=== PATIENT | female | born 2005 | race Caucasian/White ===

== ENCOUNTER 2024-11-03 01:41 | Emergency (ER) | payer SELFPAY ==
[2024-11-03 01:47] VITALS: BP 105/85
--- NOTE | 2024-11-03 03:20 | ED.GENMED ---
History of Present Illness
General
Chief Complaint: Musculo-Skeletal Complaint
Source: patient and family
Exam Limitations: none
Time Seen by Provider: 11/03/24 02:19
Nursing documentation reviewed up to this point in time: agreed with
History of Present Illness
History of Present Illness:
18-year-old female presenting to the emergency department today with concerns of right ankle swelling after standing up quickly twisting her ankle. Beauty a pop difficulty ambulating since worsening swelling since as well. Denies additional injury
no numbness or weakness
Review of Systems
Review of Systems
Allergies reviewed?: Yes
All Other Systems: ROS reviewed and negative except as documented in HPI and ROS
Phy Exam
Physical Exam
Physical Exam:
GENERAL: Alert , in no apparent distress
EYE: pupils equal and reactive
NECK: Supple, no significant adenopathy.
ENT: o/p clr, mmm.
CARDIAC: Regular rate and rhythm .
LUNGS: Clear breath sounds bilaterally, no acute respiratory distress, no wheezes/rales/rhonchi
ABDOMEN: Soft, without focal tenderness, no r/g, no cvat
NEUROLOGICAL: Alert and oriented, no focal neuro deficits
SKIN: Warm and dry, skin intact.
MUSCULOSKELETAL: Swelling and tenderness to the area anterior to the lateral malleolus. No significant posterior pain no pain to the Achilles normal ankle move increased discomfort with forced inversion. No tenderness to the base of the fifth
metatarsal no tenderness throughout the midfoot or fourth, well perfused.
PSYCH: Normal and appropriate interaction.
Course
Orders/Labs/Results
Orders:
Orders
11/03/24 01:52
Ankle, Right 3 view CR [CR Ankle - Right Min 3 Views *] Urgent
Comment:
Reason For Exam: injury
11/03/24 03:19
[place] Wrap Right-Treatment ONCE
Crutches-Treatment ONCE
Acetaminophen [Tylenol] 650 mg PO NOW STA
Ibuprofen [Motrin] 600 mg PO NOW STA
Vital Signs
Initial and Last Documented VS:
Initial Vital Signs
Temp Pulse Resp BP Pulse Ox
98.8 F 94 20 105/85 99
11/03/24 01:47 11/03/24 01:47 11/03/24 01:47 11/03/24 01:47 11/03/24 01:47
Last Documented Vital Signs
Temp Pulse Resp BP Pulse Ox
98.8 F 94 20 105/85 98
11/03/24 01:47 11/03/24 01:47 11/03/24 01:47 11/03/24 01:47 11/03/24 01:47
MDM/Problems Addressed
MDM/Problems Addressed:
18-year-old female presenting after inversion injury. Tenderness mainly to the area anterior to the lateral malleolus. No tenderness to the base of the fifth metatarsal. X-ray without signs of fracture. Patient with likely ankle sprain. Patient
advised for progressive weightbearing and follow-up as an outpatient. Return precautions given.
*Critical Care Note
Total Time (30-74mins, 75-104mins- exclusive of procedures): Not Applicable
ED Attending Note
-
Portions of this chart may have been created with voice recognition software.� Occasional wrong word or��sound alike� substitutions may have occurred due to the inherent limitations of voice recognition software.
Discharge Plan
Departure
Patient Disposition: Home (Routine Discharge)
Date of Disposition: 11/03/24
Time of Disposition: 03:20
Patient with high blood pressure during this ER visit?: No
Condition: Good
Covid-19: Not Applicable
Discharge Problem:
Ankle sprain
Instructions: Sprain (DC)
Prescriptions:
No Action
No Current Medications
0
Referrals:
NONE,* [Family Provider] -
Lon Mccallum MD [Active] - Follow up in 5-7 days
Activity Restrictions/Additional Instructions:
You came to the emergency department today with concerns of ankle injury. No signs of fracture on x-ray. This is likely a sprain. Please rest ice compress and elevate and gradually increase activity over the next week or so. Return for any
worsening, new or concerning symptoms.
Interventions
Interventions:
*Risk Screen - Suicide Last Done: 11/03/24 01:47
*General Assessment Last Done: 11/03/24 01:47
*Neglect/Abuse Screening Last Done: 11/03/24 01:47
*ED- Fall Risk Assessment Last Done: 11/03/24 01:47
*ED COVID-19 Vaccine History Last Done: 11/03/24 01:47
Discharge Date and Time
Print Language: SPANISH
[2024-11-03] MEDS: TYLENOL 650 MG PO (03:24)
[2024-11-03] MEDS: MOTRIN 600 MG PO (03:24)
== END 2024-11-03 03:58 | disposition home or self-care (01) ==
LOC: EMR 01:41
PROVIDERS: EMERGENCY PHYSICIAN Student in an Organized Health Care Education/Training Program
DX: S93.401A Sprain of unspecified ligament of right ankle, initial encounter (principal); X50.1XXA Overexertion from prolonged static or awkward postures, initial encounter
CPT/HCPCS: 99283; 73610